=== PATIENT | male | born 1970 | race Hispanic/Latino ===

== ENCOUNTER 2019-05-04 10:32 | Emergency (ER) | payer BC ==
--- NOTE | 2019-05-04 11:15 | Emergency Department Report ---
Minor Respiratory - HPI Chief Complaint: Upper Respiratory Infection Stated Complaint: ALLERGY/SORE THROAT/GREYSON Time Seen by Provider: 05/04/19 11:11 Duration: 3 Days Pain Location: Facial, Throat, Nose Severity: mild Minor Respiratory: Yes Rhinorrhea, Yes Sore Throat, Yes Able to Tolerate Fluids, No Ear Pain, No Cough, No Sick Contacts, No Hemoptysis, No Chest Pain, No Shortness of Breath, No Fever Other History: cc: "I have bad allergies.". HPI: Mr. Loredo is a healthy 48-year-old male who presents with nasal congestion and facial pressure sore throat for the past several days. He has run out of his normal allergy medications. This is his first time here in [place]. 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 ED Review of Systems ROS: Stated complaint: ALLERGY/SORE THROAT/GREYSON Other details as noted in HPI Constitutional: malaise. denies: fever ENT: throat pain, congestion Respiratory: denies: cough, shortness of breath ED Past Medical Hx - Past Medical History Previous Medical History?: No - Surgical History Additional Surgical History: Hernia - Social History Smoking Status: Never Smoker Substance Use Type: None - Medications Home Medications: Home Medications Medication Instructions Recorded Confirmed Last Taken Type Fluticasone [Flonase] 1 spray NS QDAY 30 Days #1 bottle 05/04/19 Unknown Rx Loratadine [Claritin] 10 mg PO DAILY 30 Days #30 tablet 05/04/19 Unknown Rx Minor Respiratory Exam - Exam General: Vital signs noted. No distress. Alert and acting appropriately. HEENT: Yes Moist Mucous Membranes, Yes Rhinorrhea, No Pharyngeal Erythema, No Pharyngeal Exudates, No Conjuctival Injection Neck: Yes Supple, No Adenopathy Lungs: Yes Good Air Exchange, No Wheezes, No Ronchi, No Stridor, No Cough, No Labored Respirations, No Retractions, No Use of Accessory Muscles, No Other Abnormal Lung Sounds Heart: Yes Regular, No Murmur Abdomen: Yes Normal Bowel Sounds, No Tenderness, No Peritoneal Signs Skin: No Rash, No Edema Neurologic: Alert and oriented, no deficits. Musculoskeletal: Unremarkable. ED Course Vital Signs 05/04/19 10:39 Temperature 97.9 F Pulse Rate 62 Respiratory 18 Rate Blood Pressure 139/80 O2 Sat by Pulse 99 Oximetry ED Medical Decision Making - Medical Decision Making Diagnosis URI, seasonal allergies prescribed Flonase and Claritin. Critical care attestation.: If time is entered above; I have spent that time in minutes in the direct care of this critically ill patient, excluding procedure time. ED Disposition Clinical Impression: URI (upper respiratory infection), Seasonal allergies Disposition: TO HOME OR SELFCARE Is pt being admited?: No Does the pt Need Aspirin: No Condition: Stable Instructions: Upper Respiratory Infection (ED), Allergic Rhinitis (ED) Prescriptions: Loratadine [Claritin] 10 mg PO DAILY 30 Days #30 tablet Fluticasone [Flonase] 1 spray NS QDAY 30 Days #1 bottle
[2019-05-04 11:44] VITALS: BP 134/78
== END 2019-05-04 11:43 | disposition home or self-care (01) ==
LOC: ED 10:32
DX: J06.9 Acute upper respiratory infection, unspecified (principal); J30.2 Other seasonal allergic rhinitis; Z79.899 Other long term (current) drug therapy
CPT/HCPCS: 99282